=== PATIENT | male | born 1995 | race Asian ===

== ENCOUNTER → 2016-09-25 | Outpatient (CLI) | payer OTHER ==
[2016-09-27 08:07] LABS: HDL-C 35 mg/dL (>39); HDL-P (TOTAL) 21.9 umol/L (>=30.5); LDL SIZE 19.7 nm (>20.5); LDL-C 119 mg/dL (0-99); LDL-P 513 nmol/L (<1000); LP-INSULIN RESISTANCE SCORE 67 (<=45); SMALL LDL-P 170 nmol/L (<=527); TRIGLYCERIDES 213 mg/dL (0-149)
== END | disposition home or self-care (01) ==
LOC: LAB 11:16
PROVIDERS: ATTEND Internal Medicine
DX: Z12.11 Encounter for screening for malignant neoplasm of colon (principal); Z13.220 Encounter for screening for lipoid disorders; I10 Essential (primary) hypertension; G51.0 Bell's palsy; D56.8 Other thalassemias; E78.1 Pure hyperglyceridemia; R73.02 Impaired glucose tolerance (oral); Z83.3 Family history of diabetes mellitus
CPT/HCPCS: 36415; 80061; 80076; 83704

== ENCOUNTER → 2017-03-14 | Outpatient (CLI) | payer OTHER ==
[2017-03-14 09:42] LABS: HEMATOCRIT 48.2 % (39.2-51.8); HEMOGLOBIN 16.2 g/dL (13.7-18.0); WHITE BLOOD COUNT 6.3 x10^3/uL (3.4-10)
[2017-03-14 09:58] LABS: FERRITIN 71.8 ng/mL (26-388)
== END | disposition home or self-care (01) ==
LOC: LAB 09:19
PROVIDERS: ATTEND Internal Medicine
DX: Z00.01 Encounter for general adult medical examination with abnormal findings (principal); Z13.220 Encounter for screening for lipoid disorders; Z12.11 Encounter for screening for malignant neoplasm of colon; Z12.5 Encounter for screening for malignant neoplasm of prostate; I10 Essential (primary) hypertension; G51.0 Bell's palsy; D56.8 Other thalassemias; E78.1 Pure hyperglyceridemia; R73.02 Impaired glucose tolerance (oral); Z83.3 Family history of diabetes mellitus
CPT/HCPCS: 36415; 80061; 80076; 82728; 83540; 83550; 84466; 85025

== ENCOUNTER → 2017-07-05 | Outpatient (CLI) | payer OTHER ==
[2017-07-05 11:19] LABS: BASOPHILS # (AUTO) 0.03 x10^3/uL (0-0.1); BASOPHILS % (AUTO) 0 % (0-1); EOSINOPHILS # (AUTO) 0.74 x10^3/uL (0-0.4); EOSINOPHILS % (AUTO) 10 % (1-7); LYMPHOCYTES # (AUTO) 2.83 x10^3/uL (1-3.4); LYMPHOCYTES % (AUTO) 39 % (22-44); MD NO; MEAN CORPUSCULAR HEMOGLOBIN 26.2 pg (27.5-34.5); MEAN CORPUSCULAR VOLUME 79.5 fL (81-97); MEAN PLATELET VOLUME 7.4 fL (7.4-10.4); MONOCYTES # (AUTO) 0.45 x10^3/uL (0.2-0.8); MONOCYTES % (AUTO) 6 % (2-9); NEUTROPHILS # (AUTO) 3.22 x10^3/uL (1.8-6.8); NEUTROPHILS % (AUTO) 44 % (42-75); PLATELET COUNT 290 x10^3/uL (130-400); RED BLOOD COUNT 6.56 x10^6/uL (4.38-5.82); RED CELL DISTRIBUTION WIDTH 14.7 % (9.4-14.8)
[2017-07-05 11:29] LABS: % IRON SATURATION 11 % (20-55); ALANINE AMINOTRANSFERASE 46 U/L (12-78); ALBUMIN 4.3 g/dL (3.4-5.0); IRON LEVEL 51 mcg/dL (65-175); TOTAL IRON BINDING CAPACITY 449 mcg/dL (250-450)
[2017-07-05 11:33] LABS: ALKALINE PHOSPHATASE 51 U/L (45-117); BILIRUBIN,TOTAL 0.4 mg/dL (0.2-1.0); TOTAL PROTEIN 8.6 g/dL (6.4-8.2); TRANSFERRIN 388 mg/dL (200-360)
[2017-07-05 11:36] LABS: BILIRUBIN, DIRECT < 0.1 mg/dL (0.1-0.2); BILIRUBIN,INDIRECT 0.3 mg/dL (0.0-2.0)
== END | disposition home or self-care (01) ==
LOC: LAB 11:05
PROVIDERS: ATTEND Internal Medicine
DX: Z12.11 Encounter for screening for malignant neoplasm of colon (principal); Z13.220 Encounter for screening for lipoid disorders; Z12.5 Encounter for screening for malignant neoplasm of prostate; I10 Essential (primary) hypertension; G51.0 Bell's palsy; Z83.3 Family history of diabetes mellitus; D56.8 Other thalassemias; E78.1 Pure hyperglyceridemia; R73.02 Impaired glucose tolerance (oral)
CPT/HCPCS: 36415; 80061; 80076; 82728; 83540; 83550; 83704; 84466; 85025

== ENCOUNTER → 2018-01-07 | Outpatient (CLI) | payer OTHER | END | disposition home or self-care (01) | LOC: CFH 10:57 | PROVIDERS: ATTEND Nurse Practitioner Primary Care | DX: M43.17 Spondylolisthesis, lumbosacral region (principal); R10.9 Unspecified abdominal pain; R53.83 Other fatigue; E78.1 Pure hyperglyceridemia; D56.8 Other thalassemias; M54.5 Low back pain; R79.9 Abnormal finding of blood chemistry, unspecified | CPT/HCPCS: 72100; 74018 ==

== ENCOUNTER → 2018-01-08 | Outpatient (CLI) | payer OTHER ==
[2018-01-08 09:41] LABS: BASOPHILS # (AUTO) 0.05 x10^3/uL (0-0.1); BASOPHILS % (AUTO) 1 % (0-1); EOSINOPHILS # (AUTO) 0.62 x10^3/uL (0-0.4); EOSINOPHILS % (AUTO) 10 % (1-7); LYMPHOCYTES # (AUTO) 2.81 x10^3/uL (1-3.4); LYMPHOCYTES % (AUTO) 47 % (22-44); MD NO; MEAN CORPUSCULAR HEMOGLOBIN 25.7 pg (27.5-34.5); MEAN CORPUSCULAR HGB CONC 32.6 g/dL (33.2-36.2); MEAN CORPUSCULAR VOLUME 78.8 fL (81-97); MEAN PLATELET VOLUME 7.8 fL (7.4-10.4); MONOCYTES # (AUTO) 0.29 x10^3/uL (0.2-0.8); MONOCYTES % (AUTO) 5 % (2-9); NEUTROPHILS # (AUTO) 2.28 x10^3/uL (1.8-6.8); NEUTROPHILS % (AUTO) 38 % (42-75); PLATELET COUNT 325 x10^3/uL (130-400); RED BLOOD COUNT 6.51 x10^6/uL (4.38-5.82); RED CELL DISTRIBUTION WIDTH 13.7 % (9.4-14.8)
[2018-01-08 09:50] LABS: ALBUMIN 4.4 g/dL (3.4-5.0); ANION GAP 7 mmol/L (5-15); CALCIUM 9.4 mg/dL (8.5-10.1); CHLORIDE 105 mmol/L (98-107); CHOLESTEROL, TOTAL 155 mg/dL (140-239); TRIGLYCERIDES 202 mg/dL (50-200); VLDL CHOLESTEROL 40 mg/dL (0-25)
[2018-01-08 09:59] LABS: HEMOGLOBIN A1C 5.7 % (4.2-6.3)
[2018-01-08 10:17] LABS: % IRON SATURATION 20 % (20-55); ALANINE AMINOTRANSFERASE 83 U/L (12-78); ALKALINE PHOSPHATASE 59 U/L (45-117); BILIRUBIN,TOTAL 0.7 mg/dL (0.2-1.0); CHOL/HDL RATIO 3.6; CREATININE 1.18 mg/dL (0.7-1.3); FOLATE LEVEL 17.6 ng/mL (3.1-17.5); FREE T4 (FREE THYROXINE) 1.17 ng/dL (0.76-1.46); HDL CHOL % 28 % (26-37); HDL CHOLESTEROL (DIRECT) 43 mg/dL (40-60); IRON LEVEL 96 mcg/dL (65-175); LDL CHOLESTEROL,CALCULATED 72 mg/dL (54-169); LDL/HDL RATIO 1.7 (0.5-3.0); TOTAL IRON BINDING CAPACITY 483 mcg/dL (250-450); TOTAL PROTEIN 8.7 g/dL (6.4-8.2); TRANSFERRIN 384 mg/dL (200-360)
[2018-01-08 10:19] LABS: MICROSCOPIC NOT IND
[2018-01-08 10:29] LABS: CULTURE INDICATED? NO
== END | disposition home or self-care (01) ==
LOC: LAB 09:12
PROVIDERS: ATTEND Internal Medicine
DX: Z00.01 Encounter for general adult medical examination with abnormal findings (principal); D56.8 Other thalassemias; E78.1 Pure hyperglyceridemia; R53.83 Other fatigue; R79.9 Abnormal finding of blood chemistry, unspecified; R10.9 Unspecified abdominal pain
CPT/HCPCS: 36415; 80053; 80061; 81003; 82150; 82306; 82607; 82728; 82746; 83036; 83516; 83540; 83550; 83690; 84207; 84425; 84439; 84443; 84466; 84480; 84550; 85025

== ENCOUNTER → 2018-01-14 | Outpatient (CLI) | payer OTHER | END | disposition home or self-care (01) | LOC: CFH 09:26 | PROVIDERS: ATTEND Nurse Practitioner Primary Care | DX: R79.9 Abnormal finding of blood chemistry, unspecified (principal); Z79.899 Other long term (current) drug therapy | CPT/HCPCS: 36415; 82785; 86003; 86005 ==

== ENCOUNTER → 2018-06-29 | Outpatient (CLI) | payer OTHER ==
[2018-06-29 11:08] LABS: ALBUMIN 4.3 g/dL (3.4-5.0); ANION GAP 10 mmol/L (5-15); CALCIUM 8.7 mg/dL (8.5-10.1); CHLORIDE 106 mmol/L (98-107); CHOLESTEROL, TOTAL 268 mg/dL (140-239); TRIGLYCERIDES 329 mg/dL (50-200); VLDL CHOLESTEROL 66 mg/dL (0-25)
[2018-06-29 11:12] LABS: % IRON SATURATION 16 % (20-55); ALANINE AMINOTRANSFERASE 59 U/L (12-78); ALKALINE PHOSPHATASE 52 U/L (45-117); BILIRUBIN,TOTAL 0.4 mg/dL (0.2-1.0); CHOL/HDL RATIO 5.7; HDL CHOL % 18 % (26-37); HDL CHOLESTEROL (DIRECT) 47 mg/dL (40-60); IRON LEVEL 61 mcg/dL (65-175); LDL CHOLESTEROL,CALCULATED 155 mg/dL (54-169); LDL/HDL RATIO 3.3 (0.5-3.0); TOTAL IRON BINDING CAPACITY 384 mcg/dL (250-450); TOTAL PROTEIN 8.4 g/dL (6.4-8.2); TRANSFERRIN 371 mg/dL (200-360)
== END | disposition home or self-care (01) ==
LOC: LAB 10:31
PROVIDERS: ATTEND Internal Medicine
DX: Z00.00 Encounter for general adult medical examination without abnormal findings (principal); Z12.11 Encounter for screening for malignant neoplasm of colon; Z13.220 Encounter for screening for lipoid disorders; Z12.5 Encounter for screening for malignant neoplasm of prostate; I10 Essential (primary) hypertension; G51.0 Bell's palsy; D56.8 Other thalassemias; Z83.3 Family history of diabetes mellitus
CPT/HCPCS: 36415; 80053; 80061; 82728; 83036; 83540; 83550; 84466

== ENCOUNTER → 2018-11-16 | Outpatient (CLI) | payer OTHER ==
[2018-11-16 13:02] LABS: ALBUMIN 4.5 g/dL (3.4-5.0); ANION GAP 4 mmol/L (5-15); CALCIUM 9.1 mg/dL (8.5-10.1); CHLORIDE 109 mmol/L (98-107)
[2018-11-16 13:06] LABS: ALANINE AMINOTRANSFERASE 63 U/L (12-78); ALKALINE PHOSPHATASE 51 U/L (45-117); BILIRUBIN,TOTAL 0.5 mg/dL (0.2-1.0); CHOL/HDL RATIO 3.1; CHOLESTEROL, TOTAL 168 mg/dL (140-239); CREATININE 1.11 mg/dL (0.7-1.3); HDL CHOL % 32 % (26-37); HDL CHOLESTEROL (DIRECT) 54 mg/dL (40-60); LDL CHOLESTEROL,CALCULATED 94 mg/dL (54-169); LDL/HDL RATIO 1.7 (0.5-3.0); TOTAL PROTEIN 8.4 g/dL (6.4-8.2); TRIGLYCERIDES 99 mg/dL (50-200); VLDL CHOLESTEROL 20 mg/dL (0-25)
[2018-11-16 13:12] LABS: HEMOGLOBIN A1C 5.7 % (4.2-6.3)
== END | disposition home or self-care (01) ==
LOC: LAB 12:08
PROVIDERS: ATTEND Internal Medicine
DX: I10 Essential (primary) hypertension (principal); E78.1 Pure hyperglyceridemia; E88.81 Metabolic syndrome and other insulin resistance; R53.83 Other fatigue; R79.9 Abnormal finding of blood chemistry, unspecified; Z13.220 Encounter for screening for lipoid disorders
CPT/HCPCS: 36415; 80053; 80061; 83036

== ENCOUNTER 2019-10-11 08:48 | Outpatient (CLI) | payer OTHER ==
[2019-10-11 09:15] LABS: ALANINE AMINOTRANSFERASE 47 U/L (12-78); ALBUMIN 4.3 g/dL (3.4-5.0); ANION GAP 6 mmol/L (5-15); CALCIUM 9.7 mg/dL (8.5-10.1); CHLORIDE 107 mmol/L (98-107)
[2019-10-11 09:19] LABS: ALKALINE PHOSPHATASE 44 U/L (45-117); BILIRUBIN,TOTAL 0.7 mg/dL (0.2-1.0); CHOL/HDL RATIO 4.1; CHOLESTEROL, TOTAL 172 mg/dL (140-239); CREATININE 1.06 mg/dL (0.7-1.3); HDL CHOL % 24 % (26-37); HDL CHOLESTEROL (DIRECT) 42 mg/dL (40-60); LDL CHOLESTEROL,CALCULATED 84 mg/dL (54-169); TOTAL PROTEIN 8.5 g/dL (6.4-8.2); TRIGLYCERIDES 228 mg/dL (50-200); VLDL CHOLESTEROL 46 mg/dL (0-25)
== END 2019-10-11 23:59 | disposition home or self-care (01) ==
LOC: LAB 08:48
PROVIDERS: ATTEND Internal Medicine
DX: Z12.11 Encounter for screening for malignant neoplasm of colon (principal); Z12.5 Encounter for screening for malignant neoplasm of prostate; Z13.220 Encounter for screening for lipoid disorders; Z00.00 Encounter for general adult medical examination without abnormal findings; G51.0 Bell's palsy; Z83.3 Family history of diabetes mellitus; D56.8 Other thalassemias; E78.1 Pure hyperglyceridemia; R73.02 Impaired glucose tolerance (oral); R74.8 Abnormal levels of other serum enzymes
CPT/HCPCS: 36415; 80053; 80061

== ENCOUNTER 2020-03-20 08:54 | Outpatient (CLI) | payer OTHER ==
[2020-03-20 09:18] LABS: BASOPHILS # (AUTO) 0.03 x10^3/uL (0-0.1); BASOPHILS % (AUTO) 1 % (0-1); EOSINOPHILS # (AUTO) 0.58 x10^3/uL (0-0.4); EOSINOPHILS % (AUTO) 8 % (1-7); LYMPHOCYTES % (AUTO) 40 % (22-44); MD NO; MEAN CORPUSCULAR HEMOGLOBIN 25.5 pg (27.5-34.5); MEAN CORPUSCULAR HGB CONC 32.3 g/dL (33.2-36.2); MEAN PLATELET VOLUME 7.5 fL (7.4-10.4); MONOCYTES # (AUTO) 0.34 x10^3/uL (0.2-0.8); MONOCYTES % (AUTO) 5 % (2-9); NEUTROPHILS # (AUTO) 3.31 x10^3/uL (1.8-6.8); NEUTROPHILS % (AUTO) 47 % (42-75); PLATELET COUNT 295 x10^3/uL (130-400); RED BLOOD COUNT 6.11 x10^6/uL (4.38-5.82); RED CELL DISTRIBUTION WIDTH 14.9 % (9.4-14.8)
[2020-03-20 09:30] LABS: ALANINE AMINOTRANSFERASE 52 U/L (12-78); ALBUMIN 4.1 g/dL (3.4-5.0); ANION GAP 8 mmol/L (5-15); CALCIUM 9.2 mg/dL (8.5-10.1); CHLORIDE 106 mmol/L (98-107); CHOLESTEROL, TOTAL 180 mg/dL (140-239); CREATININE 1.05 mg/dL (0.7-1.3); TRIGLYCERIDES 160 mg/dL (50-200); VLDL CHOLESTEROL 32 mg/dL (0-25)
[2020-03-20 09:40] LABS: ALKALINE PHOSPHATASE 44 U/L (45-117); BILIRUBIN,TOTAL 0.6 mg/dL (0.2-1.0); CHOL/HDL RATIO 3.5; HDL CHOL % 29 % (26-37); HDL CHOLESTEROL (DIRECT) 52 mg/dL (40-60); LDL CHOLESTEROL,CALCULATED 96 mg/dL (54-169); LDL/HDL RATIO 1.8 (0.5-3.0); TOTAL PROTEIN 8.2 g/dL (6.4-8.2)
== END 2020-03-20 23:59 | disposition home or self-care (01) ==
LOC: LAB 08:54
PROVIDERS: ATTEND Internal Medicine
DX: Z12.11 Encounter for screening for malignant neoplasm of colon (principal); Z13.220 Encounter for screening for lipoid disorders; Z12.5 Encounter for screening for malignant neoplasm of prostate; D56.8 Other thalassemias; R73.02 Impaired glucose tolerance (oral); I10 Essential (primary) hypertension; E78.1 Pure hyperglyceridemia; G51.0 Bell's palsy
CPT/HCPCS: 36415; 80053; 80061; 84443; 85025